=== PATIENT | male | born 1950 | race Caucasian/White ===

== ENCOUNTER 2022-06-20 01:19 | Emergency (ER) | payer MEDICARE ==
[~2022-06-20] VITALS: Ht 175.3 cm; Wt 65.8 kg
[2022-06-20] MEDS ORDERED: CIALIS5 MG PO (01:38)
[2022-06-20] MEDS ORDERED: FLOMAX0.4 MG PO (02:13)
--- OUTSIDE RECORDS SUMMARY | 2022-06-20 02:16 | XMS ---
PreManage Notification: JOAN MOFFETT Security [employer] Events No recent Security Events currently on file CRITERIA MET - [facility] - 2 Visits in 30 Days CARE PROVIDERS There are no care providers on record at this time. Wily has no Care Guidelines for this patient. EAvelino VISIT COUNT (12 MO.) 1 [place] [address] TOTAL 2 NOTE: Visits indicate total known visits. ED/UCC VISIT TRACKING (12 MO.) [facility] COMPLAINT: - URINE PROBLEM 06/18/2022 23:10 [place] [facility] TYPE: Emergency COMPLAINT: - URINARY RETENTION INPATIENT VISIT TRACKING (12 MO.) No inpatient visits to display in this time frame [email or web address]
== END 2022-06-20 02:50 | disposition home or self-care (01) ==
LOC: ED 01:19
DX: R33.9 Retention of urine, unspecified (principal); K59.00 Constipation, unspecified; Z79.899 Other long term (current) drug therapy
CPT/HCPCS: 51702; 81001; 99283-25